=== PATIENT | female | born 1985 | race Caucasian/White ===

== ENCOUNTER 2018-04-01 14:10 | Emergency (ER) | payer BC ==
[2018-04-01] MEDS ORDERED: ONDANSETRON INJ 4 MG/2 ML VIAL IV ONE ×2 (14:23→19:44)
[2018-04-01] MEDS ORDERED: SODIUM CHLORIDE 0.9% 1000ML 1,000 ML IVS ONE (14:23)
--- NOTE | 2018-04-01 14:27 | ED.PDOC ---
History of Present Illness - General Chief Complaint: GI Problem Time Seen by Provider: 04/01/18 14:23 Information Source: patient Exam Limitations: no limitations - History of Present Illness Initial Comments: patient comes in today for four-day history of nausea, emesis, and diarrhea. Patient states the diarrhea started first on with slight fever and chills subjectively. Patient has gone multiple times throughout all the days. No blood or mucus is reported. Today and yesterday she had considerable nausea with 3 bouts of emesis this morning. Today also her abdomen started having pre-significant cramping although no overt sharp pain. Patient's states she's had no recent ill contacts, travel, or questionable by mouth intake. She is a little bit of nasal congestion but no cough. Some body aches and overall weakness. Patient is otherwise healthy and has no past medical history. Patient has no known drug allergies. Patient does not believe that she is but is not sure. Abdominal Pain Onset Location: generalized abdomen Pain Radiation: no radiation Quality: moderate, cramping Timing/Duration: days - 4, getting worse Improving Factors: nothing Worsening Factors: eating Associated Symptoms: diarrhea, fever/chills, nausea/vomiting Review of Systems - Review of Systems Constitutional: States: chills, fever, malaise, weakness EENTM: States: nose congestion. Denies: eye pain, ear pain, throat pain Respiratory: States: no symptoms reported. Denies: cough, short of breath, wheezing Cardiology: States: no symptoms reported. Denies: chest pain, edema, palpitations Gastrointestinal/Abdominal: States: see HPI, abdominal pain, diarrhea, nausea, vomiting Genitourinary: States: no symptoms reported. Denies: dysuria, frequency, hematuria Skin: States: no symptoms reported Past Medical History (General) - Patient Medical History Hx Seizures: No Hx Stroke: No Hx Asthma: No Hx of COPD: No Hx Cardiac Disorders: No Hx Congestive Heart Failure: No Hx Pacemaker: No Hx Hypertension: No Hx Diabetes: Yes Hx Renal Disease: No Hx MRSA: No - Vaccination History Hx Tetanus, Diphtheria Vaccination: No Hx Influenza Vaccination: No Hx Pneumococcal Vaccination: No - Social History Hx Tobacco Use: No Hx Alcohol Use: No Hx Substance Use: No Hx Substance Use Treatment: No Hx Depression: Yes Hx Physical Abuse: No Hx Emotional Abuse: No - Female History Hx Last Menstrual Period: 05/03/13 Patient : No Expected Date of Delivery:: 02/07/13 Family Medical History - Family History Father Name: Ruben Willis Age (years): 78 Living Status: Still Living Hx Cardiac Disease: Yes Hx Family Cancer: Yes - Meloma Mother Name: Nargis Willis Age (years): 74 Living Status: Age at (years of age): 74 Cause of : breast cancer Hx Family Asthma: Yes Hx Family Congestive Heart Failure: Yes Hx Family Hypertension: Yes Hx Family Stroke: No Hx Cardiac Disease: Yes Hx Family Diabetes: No Hx Family Cancer: Yes - Breast Age of Onset (years of age): 70 Physical Exam - Physical Exam General Appearance: Alert, Ill Appearing Eyes, Ears, Nose, Throat Exam: PERRL/EOMI, normal ENT inspection, TMs normal, pharynx normal - dry mucous membranes Neck: non-tender, full range of motion, supple Respiratory: chest non-tender, lungs clear, normal breath sounds Cardiovascular/Chest: normal peripheral pulses, regular rate, rhythm, no edema, no gallop, no murmur Peripheral Pulses: No deficit Gastrointestinal/Abdominal: soft, tenderness - diffuse tenderness with no rebound no guarding, hypoactive BS, non distended Back Exam: normal inspection, no CVA tenderness Neurologic: alert, oriented x 3 Skin Exam: other - poor skin turgor Progress - Progress Progress: 04/01/18 19:46 patient is feeling much better with no cramping and no emesis since arrival. slow return to normal diet and K is now normal. - Results/Orders Results/Orders: 04/01/18 14:40 URINE CULTURE W/COLONY COUNT Stat 04/01/18 15:10 KCl 40Meq/Ns [NS W/ KCL 40 meq/Liter] 1,000 ml IVS .QD Laboratory Results WBC 5.3 K/mm3 (4.8-10.8) 04/01/18 14:40 RBC 5.26 M/mm3 (4.20-5.40) 04/01/18 14:40 Hgb 15.7 gm/dL (12.0-16.0) 04/01/18 14:40 Hct 46.1 % (36.0-47.0) 04/01/18 14:40 MCV 87.6 fl (81.0-99.0) 04/01/18 14:40 MCH 29.9 pg (27.0-31.0) 04/01/18 14:40 MCHC 34.1 g/dL (33.0-37.0) 04/01/18 14:40 RDW 13.5 % (11.5-14.5) 04/01/18 14:40 Plt Count 223 K/mm3 (130-400) 04/01/18 14:40 MPV 8.3 fl (7.40-10.4) 04/01/18 14:40 Absolute Neuts (auto) 3.70 K/uL (1.8-6.8) 04/01/18 14:40 Absolute Lymphs (auto) 1.10 K/uL (1.0-3.4) 04/01/18 14:40 Absolute Monos (auto) 0.50 K/uL (0.2-0.8) 04/01/18 14:40 Absolute Eos (auto) 0.00 K/uL (0.0-0.4) 04/01/18 14:40 Absolute Basos (auto) 0.00 K/uL (0.0-0.1) 04/01/18 14:40 Neutrophils % 69.8 % (42.0-78.0) 04/01/18 14:40 Lymphocytes % 20.1 % (20.0-50.0) 04/01/18 14:40 Monocytes % 9.1 % (2.0-9.0) H 04/01/18 14:40 Eosinophils % 0.6 % (1.0-5.0) L 04/01/18 14:40 Basophils % 0.4 % (0.0-2.0) 04/01/18 14:40 Sodium 133 mmol/L (135-145) L 04/01/18 14:40 Potassium 2.7 mmol/L (3.6-5.0) L 04/01/18 14:40 Chloride 98 mmol/L (101-111) L 04/01/18 14:40 Carbon Dioxide 23 mmol/L (21-31) 04/01/18 14:40 Anion Gap 14.7 (12-18) 04/01/18 14:40 BUN 13 mg/dL (7-18) 04/01/18 14:40 Creatinine 0.92 mg/dL (0.6-1.3) 04/01/18 14:40 BUN/Creatinine Ratio 14.1 (10-20) 04/01/18 14:40 Random Glucose 121 mg/dL (70-105) H 04/01/18 14:40 Serum Osmolality 267.7 mOsm/L (275-295) L 04/01/18 14:40 Calcium 8.8 mg/dL (8.4-10.2) 04/01/18 14:40 Total Bilirubin 1.2 mg/dL (0.2-1.0) H 04/01/18 14:40 AST 53 IU/L (10-42) H 04/01/18 14:40 ALT 52 IU/L (10-60) 04/01/18 14:40 Alkaline Phosphatase 58 IU/L (42-121) 04/01/18 14:40 Serum Total Protein 7.5 gm/dL (6.4-8.2) 04/01/18 14:40 Albumin 4.0 g/dl (3.2-5.5) 04/01/18 14:40 Globulin 3.5 gm/dL (2.3-3.5) 04/01/18 14:40 Albumin/Globulin Ratio 1.1 (1.1-1.9) 04/01/18 14:40 Amylase 38 U/L (28-100) 04/01/18 14:40 Lipase 26 U/L (22-51) 04/01/18 14:40 Serum HCG, Qual Negative 04/01/18 14:40 Urine Color [place]izz[place] (Yellow) H 04/01/18 14:40 Urine Appearance Sl cloudy (Clear) 04/01/18 14:40 Urine pH 6.0 (4.5-7.8) 04/01/18 14:40 Ur Specific [place] 1.025 (1.005-1.030) 04/01/18 14:40 Urine Protein >=300 mg/dL H 04/01/18 14:40 Urine Glucose (UA) 100 mg/dL (Negative) H 04/01/18 14:40 Urine Ketones Trace mg/dL (NEGATIVE) 04/01/18 14:40 Urine Blood Trace-intact (Negative) H 04/01/18 14:40 Urine Nitrite Negative 04/01/18 14:40 Urine Bilirubin Moderate (NEGATIVE) 04/01/18 14:40 Urine Urobilinogen >= 8.0 mg/dL (0.2-1.0) H 04/01/18 14:40 Ur Leukocyte Esterase Moderate (Negative) H 04/01/18 14:40 Urine RBC 0-1 /hpf 04/01/18 14:40 Urine WBC 5-10 /hpf H 04/01/18 14:40 Ur Epithelial Cells 20-30 /hpf 04/01/18 14:40 Urine Bacteria Rare 04/01/18 14:40 KUB normal Departure - Departure Clinical Impression: Gastroenteritis, Dehydration Disposition: Discharge to Home or Self Care Condition: Good Departure Forms: ED Discharge - Pt. Copy, Patient Portal Self Enrollment Diet: other - slow return to normal diet as discussed Referrals: Asael Andrade MD [Primary Care Provider] - 1-2 Weeks Prescriptions: Ondansetron [Ondansetron Odt] 4 mg PO Q6HRS PRN #10 tab PRN Reason: Nausea/Vomiting Home Medications: Ambulatory Orders Ondansetron [Ondansetron Odt] 4 mg PO Q6HRS PRN #10 tab 04/01/18 Additional Instructions: return to ER for intractable emesis, dehydration, increased abdominal pain.
[2018-04-01] MEDS ORDERED: KCL 40MEQ/NS 1,000 ML IVS PRN (15:10)
--- NOTE | 2018-04-01 16:03 | RAD ---
EXAM DESCRIPTION: Abdomen 1 View CLINICAL HISTORY: 33 years Female n/v abdominal pain COMPARISON: None. TECHNIQUE: Single view of the abdomen. FINDINGS: The upper abdomen was not entirely included on the film. No dilated loops of bowel to suggest obstruction. No significant calcific densities are identified. IMPRESSION: No acute plain film abnormality is identified. Electronically signed by: Wojciech Lopez MD 04/01/2018 4:02 PM CREW MEMBER
[2018-04-01 20:17] VITALS: BP 102/68; TEMP 97.9; O2SAT 98
== END 2018-04-01 20:05 | disposition home or self-care (01) ==
LOC: ER 14:10
DX: K52.9 Noninfective gastroenteritis and colitis, unspecified (principal); E86.0 Dehydration; E11.9 Type 2 diabetes mellitus without complications; F32.9 Major depressive disorder, single episode, unspecified
CPT/HCPCS: 36415; 74018; 80053; 81001; 82150; 83690; 84132; 84703; 85025; 87086; 87502; J2405; J3480; J7030

== ENCOUNTER 2018-06-11 22:14 | Emergency (ER) | payer BC ==
[2018-06-11 22:40] VITALS: TEMP 99.2
--- NOTE | 2018-06-11 23:14 | RAD ---
CLINICAL HISTORY: sob, abd pain COMPARISON: None. TECHNIQUE: XR ABDOMEN SUPINE AND ERECT WITH CHEST (ABD ACUTE SERIES) 06/11/2018 10:42 PM SALES BROKER FINDINGS: Bowel gas pattern is nonspecific. There are no abnormal radiopaque foreign bodies or abnormal calcifications. Osseous structures are grossly unremarkable. The heart is normal in size. Lungs are clear. Cholecystectomy was performed. IMPRESSION: Nonspecific bowel gas pattern. Electronically signed by: Sloan Decker MD 06/11/2018 11:11 PM SALES BROKER
[2018-06-12] MEDS ORDERED: POTASSIUM CHLORIDE ELIXIR 20 MEQ/15 ML UD PO ONE ×2 (00:02→04:43)
[2018-06-12] MEDS ORDERED: KCL 40MEQ/NS 1,000 ML IVS ONE (00:02)
[2018-06-12] MEDS ORDERED: PROMETHAZINE HCL INJ 25 MG in SODIUM CHLORIDE 0.9% 50ML 50 ML IVPB ONE (02:36)
[2018-06-12] MEDS ORDERED: IPRATROPIUM/ALBUTEROL 3 ML VIAL NEB ONE (02:40)
[2018-06-12] MEDS ORDERED: SUCRALFATE 1 GM/10 ML 1 GM UD PO ONE (02:42)
[2018-06-12] MEDS ORDERED: SODIUM CHLORIDE 0.9% 50ML 50 ML ONE (02:44)
[2018-06-12] MEDS ORDERED: PROMETHAZINE HCL INJ 25 MG/ML VIAL ONE (02:44)
[2018-06-12 03:07] VITALS: O2SAT 98
--- NOTE | 2018-06-12 03:21 | CT ---
CLINICAL HISTORY: cough, sob, elev ddimer COMPARISON: None. TECHNIQUE: CT ABDOMEN PELVIS WITH IV CONTRAST, CT CHEST ANGIOGRAPHY WITH IV CONTRAST on 06/12/2018 2:37 AM PLASTICS FABRICATOR AND ASSEMBLER. MIPS reconstructions were generated. This exam was performed according to our departmental dose-optimization program, which includes automated exposure control, adjustment of the mA and/or kV according to patient size and/or use of iterative reconstruction technique. FINDINGS: Vascular: Thoracic aorta is normal in course and caliber without aneurysm or dissection. Pulmonary arteries are adequately opacified. There are no acute or chronic filling defects. Abdominal aorta is normal in course and caliber without aneurysm. Pelvic arteries are patent without aneurysm or occlusion. Chest: The heart is normal in size. There is no pericardial effusion. Intrathoracic lymph nodes are not enlarged. There is no pleural effusion, pleural thickening or pneumothorax. Central airways are patent. Lungs are clear with no consolidation, mass or interstitial lung disease. Abdomen: The liver is normal in appearance. There is no biliary dilatation. Cholecystectomy was performed. The pancreas and spleen are normal in appearance. The adrenal glands and kidneys are unremarkable. There is no free air. There is no retroperitoneal adenopathy. Pelvis: There is no bowel obstruction. Urinary bladder is unremarkable. There is no free fluid. Uterus is normal in size. Appendix is normal. Skeleton: There are no acute osseous findings. No suspicious bony lesions. IMPRESSION: No acute inflammatory process. No aortic dissection or aneurysm. No pulmonary embolus. Electronically signed by: Sloan Decker MD 06/12/2018 3:18 AM PLASTICS FABRICATOR AND ASSEMBLER
--- NOTE | 2018-06-12 04:36 | ED.PDOC ---
History of Present Illness - General Chief Complaint: General Stated Complaint: stomach cramping, coughing, Time Seen by Provider: 06/11/18 22:18 Source: patient Exam Limitations: no limitations - History of Present Illness Initial Comments: the patient's a 33-year-old female presenting to the emergency room secondary to sickness for the last 6 weeks at least. Sickness started with a gastroenteritis. Gastroenteritis resolved after treatment with oral antibiotic however the patient has had persistent abdominal cramping and coughing. The patient has been on around the azithromycin and steroid and does have an inhaler as well without much relief of the coughing. She isn't coughing and shortness of breath and mild feeling of palpitations. Sometimes she has had some chest pain with cough. No obvious fever. No hypoxia. She has diffuse abdominal discomfort. No rebound or peritoneal signs. Timing/Duration: unsure Severity: moderate Improving Factors: nothing Worsening Factors: nothing Associated Symptoms: cough, loss of appetite, malaise, nausea/vomiting, shortness of breath Allergies/Adverse Reactions: Allergies NO KNOWN ALLERGY Allergy (Verified 06/11/18 22:41) Home Medications: Ambulatory Orders Ondansetron [Ondansetron Odt] 4 mg PO Q6HRS PRN #10 tab 04/01/18 Review of Systems - Review of Systems Constitutional: States: malaise EENTM: States: no symptoms reported Respiratory: States: cough, short of breath Cardiology: States: no symptoms reported Gastrointestinal/Abdominal: States: abdominal pain, nausea, vomiting Genitourinary: States: no symptoms reported Musculoskeletal: States: no symptoms reported Skin: States: no symptoms reported Neurological: States: no symptoms reported Endocrine: States: no symptoms reported All other Systems: No Change from Baseline Past Medical History (General) - Patient Medical History Hx Seizures: No Hx Stroke: No Hx Dementia: No Hx Asthma: No Hx of COPD: No Hx Cardiac Disorders: No Hx Congestive Heart Failure: No Hx Pacemaker: No Hx Hypertension: No Hx Thyroid Disease: No Hx Diabetes: Yes Hx Gastroesophageal Reflux: No Hx Renal Disease: No Hx Cancer: No Hx of HIV: No Hx Hepatitis C: No Hx MRSA: No Surgical History: cholecystectomy - Vaccination History Hx Tetanus, Diphtheria Vaccination: No Hx Influenza Vaccination: Yes Hx Pneumococcal Vaccination: No - Social History Hx Tobacco Use: No Hx Alcohol Use: No Hx Substance Use: No Hx Substance Use Treatment: No Hx Depression: Yes Hx Physical Abuse: No Hx Emotional Abuse: No - Female History Hx Last Menstrual Period: 05/03/13 Patient : No Expected Date of Delivery:: 02/07/13 Family Medical History - Family History Father Name: Ruben Willis Age (years): 78 Living Status: Still Living Hx Cardiac Disease: Yes Hx Family Cancer: Yes - Meloma Mother Name: Nargis Willis Age (years): 74 Living Status: Age at (years of age): 74 Cause of : breast cancer Hx Family Asthma: Yes Hx Family Congestive Heart Failure: Yes Hx Family Hypertension: Yes Hx Family Stroke: No Hx Cardiac Disease: Yes Hx Family Diabetes: No Hx Family Cancer: Yes - Breast Age of Onset (years of age): 70 Physical Exam - Physical Exam General Appearance: Alert, Comfortable, No apparent distress Eye Exam: bilateral normal Ears, Nose, Throat: hearing grossly normal, normal ENT inspection Neck: full range of motion, supple Respiratory: no respiratory distress, no accessory muscle use, other - the patient has a very coarse cough. Cardiovascular/Chest: normal peripheral pulses, regular rate, rhythm, no edema Peripheral Pulses: radial,right: 2+, radial,left: 2+, dorsalis pedis,right: 2+, dorsalis pedis,left: 2+ Gastrointestinal/Abdominal: soft, other - diffuse discomfort to palpation but no palpable mass and no rebound or peritoneal signs Rectal Exam: deferred Back Exam: no CVA tenderness, no vertebral tenderness Extremity: normal range of motion, non-tender, normal inspection, no pedal edema Neurologic: chiropractor assistant II-XII nml as tested, alert, normal mood/affect, oriented x 3 Skin Exam: normal color Comments: Vital Signs - 24 hr 06/11/18 06/11/18 06/12/18 22:36 23:14 00:00 Temperature 99.2 F Pulse Rate [ 93 H 97 H 89 monitor] Respiratory 22 Rate Blood Pressure 94/70 81/68 99/63 [Left Arm] O2 Sat by Pulse 100 95 Oximetry 06/12/18 06/12/18 06/12/18 00:30 01:30 02:00 Temperature Pulse Rate [ 84 monitor] Respiratory 18 Rate Blood Pressure 107/67 97/70 98/62 [Left Arm] O2 Sat by Pulse 98 96 96 Oximetry 06/12/18 06/12/1819 03:06 04:04 04:34 Temperature Pulse Rate [ 80 monitor] Respiratory 16 Rate Blood Pressure 76/43 97/54 [Left Arm] O2 Sat by Pulse 98 Oximetry with the 2 lowest blood pressures above the cuff was not ideally placed Progress - Progress Progress: 06/12/18 04:39 the patient is a 33-year-old female presenting to the emergency room secondary to persistent cough along with worsening abdominal pain and cramping of several weeks' duration. The patient is already undergone a course of antibiotics and steroids. She seemed to respond well to a nebulizer treatment as far as her coughing went. The patient will be written for a nebulizer machine with DuoNeb Nebules to use as needed. The abdominal cramping is most likely due to severe hypokalemia. The patient has received several doses of po tassium here orally and IV. She does need to have a potassium repeated in about a week. She is going to be placed on potassium chloride 20 mEq tablets 1 tablet twice daily. Additionally the patient likely has some stomach upset related to the previous antibiotic and steroid usage. She is going to be written for some Pepcid to take daily for the next month. She is to avoid taking this medication at the exact same time as her potassium. Additionally she'll be written for Zofran for as needed use to control any nausea or vomiting. Source of the hypokalemia is uncertain at this point and may yet require further investigation. CT scans of the chest abdomen and pelvis failed to show any further definitive pathology. Blood pressures here today are borderline low but apparently this is not a new issue. This should be followed as an outpatient. ER warnings are given. Follow up with primary care doctor next week. - Results/Orders Results/Orders: 06/11/18 22:42 Telemetry .CONTINUOUS shows normal sinus rhythm 06/11/18 22:45 EKG STAT showed normal sinus rhythm at 97 bpm. Mild right axis deviation. Shallow T waves. No definitive U waves. Normal R-wave progression. Borderline QT interval. acute abdominal series fails to show any new pathology. CT angiogram of the chest failed to show any significant infiltrate, mass or pulmonary embolus. No aortic pathology. No evidence of cardiac pathology. CT scan of abdomen and pelvis with contrast failed to show any acute pathology. Laboratory Results - last 24 hr 02/06/11/18 06/11/18 22:43 22:51 22:51 WBC 7.6 RBC 4.24 Hgb 12.7 Hct 36.8 MCV 86.9 MCH 30.0 MCHC 34.5 RDW 13.3 Plt Count 277 MPV 7.9 Absolute Neuts (auto) 5.00 Absolute Lymphs (auto) 1.90 Absolute Monos (auto) 0.50 Absolute Eos (auto) 0.00 Absolute Basos (auto) 0.00 Neutrophils % 66.8 Lymphocytes % 25.2 Monocytes % 6.9 Eosinophils % 0.6 L Basophils % 0.5 D-Dimer, Quantitative pCO2 pO2 HCO3 ABG pH ABG O2 Saturation ABG Base Excess ABG Deoxyhemoglobin Oxyhemoglobin % Carboxyhemoglobin % Methemoglobin % Sat Calc Total Hemoglobin Sodium 135 Potassium 2.7 L Chloride 105 Carbon Dioxide 21 Anion Gap 11.7 L BUN 9 Creatinine 0.69 BUN/Creatinine Ratio 13.0 Random Glucose 178 H Serum Osmolality 273.2 L Lactic Acid Calcium 8.3 L Magnesium 2.0 Total Bilirubin 1.1 H AST 28 ALT 28 Alkaline Phosphatase 43 Creatine Kinase 73 CK-MB (CK-2) 0.4 CK-MB (CK-2) % Not Reportable Troponin I < 0.02 B-Natriuretic Peptide < 5.0 Serum Total Protein 6.8 Albumin 3.4 Globulin 3.4 Albumin/Globulin Ratio 1.0 L Amylase 46 Lipase 37 TSH 3.05 Urine Color Urine Appearance Urine pH Ur Specific [place] Urine Protein Urine Glucose (UA) Urine Ketones Urine Blood Urine Nitrite Urine Bilirubin Urine Urobilinogen Ur Leukocyte Esterase Urine RBC Urine WBC Ur Epithelial Cells Urine Bacteria Urine HCG, Qual Negative 06/11/18 06/11/18 06/11/18 22:51 23:00 23:17 WBC RBC Hgb Hct MCV MCH MCHC RDW Plt Count MPV Absolute Neuts (auto) Absolute Lymphs (auto) Absolute Monos (auto) Absolute Eos (auto) Absolute Basos (auto) Neutrophils % Lymphocytes % Monocytes % Eosinophils % Basophils % D-Dimer, Quantitative 0.69 H* pCO2 pO2 HCO3 ABG pH ABG O2 Saturation ABG Base Excess ABG Deoxyhemoglobin Oxyhemoglobin % Carboxyhemoglobin % Methemoglobin % Sat Calc Total Hemoglobin Sodium Potassium Chloride Carbon Dioxide Anion Gap BUN Creatinine BUN/Creatinine Ratio Random Glucose Serum Osmolality Lactic Acid 1.8 Calcium Magnesium Total Bilirubin AST ALT Alkaline Phosphatase Creatine Kinase CK-MB (CK-2) CK-MB (CK-2) % Troponin I B-Natriuretic Peptide Serum Total Protein Albumin Globulin Albumin/Globulin Ratio Amylase Lipase TSH Urine Color Yellow Urine Appearance Clear Urine pH 6.0 Ur Specific [place] 1.020 Urine Protein Trace Urine Glucose (UA) Negative Urine Ketones Negative Urine Blood Small H Urine Nitrite Negative Urine Bilirubin Negative Urine Urobilinogen 0.2 Ur Leukocyte Esterase Negative Urine RBC 3-5 H Urine WBC 1-3 Ur Epithelial Cells 3-5 Urine Bacteria Rare Urine HCG, Qual 06/12/18 00:45 WBC RBC Hgb Hct MCV MCH MCHC RDW Plt Count MPV Absolute Neuts (auto) Absolute Lymphs (auto) Absolute Monos (auto) Absolute Eos (auto) Absolute Basos (auto) Neutrophils % Lymphocytes % Monocytes % Eosinophils % Basophils % D-Dimer, Quantitative pCO2 30 L pO2 90 HCO3 20.1 ABG pH 7.440 ABG O2 Saturation 98.6 ABG Base Excess -2.7 ABG Deoxyhemoglobin 1.4 Oxyhemoglobin % 96.8 Carboxyhemoglobin % 0.1 L Methemoglobin % Sat 1.7 H Calc Total Hemoglobin 11.8 L Sodium Potassium Chloride Carbon Dioxide Anion Gap BUN Creatinine BUN/Creatinine Ratio Random Glucose Serum Osmolality Lactic Acid Calcium Magnesium Total Bilirubin AST ALT Alkaline Phosphatase Creatine Kinase CK-MB (CK-2) CK-MB (CK-2) % Troponin I B-Natriuretic Peptide Serum Total Protein Albumin Globulin Albumin/Globulin Ratio Amylase Lipase TSH Urine Color Urine Appearance Urine pH Ur Specific [place] Urine Protein Urine Glucose (UA) Urine Ketones Urine Blood Urine Nitrite Urine Bilirubin Urine Urobilinogen Ur Leukocyte Esterase Urine RBC Urine WBC Ur Epithelial Cells Urine Bacteria Urine HCG, Qual Departure - Departure Clinical Impression: Hypokalemia Reactive airway disease Qualifiers: Asthma severity: moderate Asthma complication type: with acute exacerbation Gastritis Qualifiers: Gastritis type: unspecified gastritis Chronicity: acute Gastritis bleeding: without bleeding Qualified Code(s): K29.00 - Acute gastritis without bleeding Disposition: Discharge to Home or Self Care Condition: Fair Departure Forms: ED Discharge - Pt. Copy, Patient Portal Self Enrollment Instructions: Hypokalemia (DC), Gastritis (DC), Asthma, Adult (DC) Diet: bland diet Activity: increase activity as tolerated Referrals: Asael Andrade MD [Primary Care Provider] - 1-2 Weeks Home Medications: Ambulatory Orders Ondansetron [Ondansetron Odt] 4 mg PO Q6HRS PRN #10 tab 04/01/18 Additional Instructions: the patient is a 33-year-old female presenting to the emergency room secondary to persistent cough along with worsening abdominal pain and cramping of several weeks' duration. The patient is already undergone a course of antibiotics and steroids. She seemed to respond well to a nebulizer treatment a s far as her coughing went. The patient will be written for a nebulizer machine with DuoNeb Nebules to use as needed. The abdominal cramping is most likely due to severe hypokalemia. The patient has received several doses of potassium here orally and IV. She does need to have a potassium repeated in about a week. She is going to be placed on potassium chloride 20 mEq tablets 1 tablet twice daily. Additionally the patient likely has some stomach upset related to the previous antibiotic and steroid usage. She is going to be written for some Pepcid to take daily for the next month. She is to avoid taking this medication at the exact same time as her potassium. Additionally she'll be written for Zofran for as needed use to control any nausea or vomiting. Source of the hypokalemia is uncertain at this point and may yet require further investigation. CT scans of the chest abdomen and pelvis failed to show any further definitive pathology. Blood pressures here today are borderline low but apparently this is not a new issue. This should be followed as an outpatient. ER warnings are given. Follow up with primary care doctor next week.
[2018-06-12 05:08] VITALS: BP 114/76
== END 2018-06-12 06:23 | disposition home or self-care (01) ==
LOC: ER 22:14
DX: J45.901 Unspecified asthma with (acute) exacerbation (principal); K29.00 Acute gastritis without bleeding; E87.6 Hypokalemia; F32.9 Major depressive disorder, single episode, unspecified; E11.9 Type 2 diabetes mellitus without complications
CPT/HCPCS: 36415; 36600; 71275; 74019; 74177; 80053; 81001; 81025; 82150; 82550; 82553; 82803; 82805; 83605; 83690; 83735; 83880; 84443; 84484; 85025; 85379; 87502; 93005; 94640; A4216; J2550; J3480; J7620

== ENCOUNTER → 2020-01-24 | Outpatient (CLI) | payer BC | LOC: YCFC.O 12:48 | PROVIDERS: ATTEND Nurse Practitioner Family | DX: Z03.818 Encounter for observation for suspected exposure to other biological agents ruled out (principal); Z11.59 Encounter for screening for other viral diseases ==